=== PATIENT | female | born 1970 ===

== ENCOUNTER → 2017-06-09 | Outpatient (CLI) | payer OTHER | END | disposition home or self-care (01) | LOC: NUCLEAR 09:27 | DX: M25.50 Pain in unspecified joint (principal) | CPT/HCPCS: 78306; A9503 ==

== ENCOUNTER 2017-07-18 10:50 | Outpatient (CLI) | payer OTHER | END 2017-07-18 10:51 | disposition home or self-care (01) | LOC: SONOGRAMA 10:50 | DX: M79.642 Pain in left hand (principal); R22.32 Localized swelling, mass and lump, left upper limb ==